=== PATIENT | male | born 1975 ===

== ENCOUNTER 2022-04-02 07:07 | Day surgery (SDC) | payer BC, MEDICAID, OTHER ==
[~2022-04-02 07:07] MED LIST: Sodium Chloride 0.9% 10 ML Syringe FLUSH PRN; Sodium Chloride 0.9% 10 ML Syringe FLUSH SCH
[2022-04-02] MEDS ORDERED: Midazolam 1 MG/ML 2 ML SDV IV ONE (07:08)
[2022-04-02] MEDS ORDERED: fentaNYL 100 MCG/2 ML SDV IV ONE (07:08)
[2022-04-02] MEDS: Dextrose 5%-0.45% NaCl 1,000 ML IV SCH (07:45)
[2022-04-02] MEDS ORDERED: Midazolam 1 MG/ML 2 ML SDV ONE (08:10)
[2022-04-02] MEDS ORDERED: fentaNYL 100 MCG/2 ML SDV ONE (08:10)
[2022-04-02] MEDS: fentaNYL 100 MCG/2 ML SDV IV ONE ×2 (10:15→10:16)
[2022-04-02] MEDS: Midazolam 1 MG/ML 2 ML SDV IV ONE ×6 (10:17→10:23)
== END 2022-04-02 11:40 | disposition home or self-care (01) ==
LOC: DL.ENDO 07:07
PROVIDERS: ATTEND Internal Medicine Gastroenterology
DX: Z12.11 Encounter for screening for malignant neoplasm of colon (principal); D12.4 Benign neoplasm of descending colon; E11.9 Type 2 diabetes mellitus without complications; E78.1 Pure hyperglyceridemia; F17.210 Nicotine dependence, cigarettes, uncomplicated; F10.90 Alcohol use, unspecified, uncomplicated; Z80.0 Family history of malignant neoplasm of digestive organs
CPT/HCPCS: J2250; J3010; J7042